=== PATIENT | female | born 1995 | race Caucasian/White ===

== ENCOUNTER 2017-10-21 17:20 | Inpatient (IN) | payer OTHER ==
[~2017-10-21] VITALS: Ht 165.1 cm; Wt 70.3 kg
[2017-10-21 17:29] VITALS: BP 148/86
[2017-10-21] MEDS ORDERED: DICYCLOMINE 20 MG/2 ML VIAL IM ONE (19:55)
[2017-10-21 21:11] LABS: BASOPHILS # (AUTO) 0.3 K/uL (0.00-0.22); BASOPHILS % (AUTO) 2.6 % (0.0-2.0); EOSINOPHILS # (AUTO) 0.1 K/uL (0-0.4); EOSINOPHILS % (AUTO) 0.6 % (0.0-4.0); HEMATOCRIT 38.9 % (36-48); HEMOGLOBIN 12.7 g/dL (12.0-16.0); LYMPHOCYTES # (AUTO) 2.4 K/uL (2.5-16.5); LYMPHOCYTES % (AUTO) 21.5 % (20.5-51.1); MEAN CORPUSCULAR HEMOGLOBIN 28 pg (27-31); MEAN CORPUSCULAR HGB CONC 33 g/dL (33-37); MEAN CORPUSCULAR VOLUME 86 fL (80-94); MONOCYTES # (AUTO) 0.4 K/uL (0.8-1.0); MONOCYTES % (AUTO) 3.7 % (1.7-9.3); NEUTROPHILS # (AUTO) 8.1 K/uL (1.8-7.7); NEUTROPHILS % (AUTO) 71.6 % (42.2-75.2); PLATELET COUNT (AUTO) 211 K/uL (140-450); RED BLOOD CELL COUNT(AUTO) 4.51 MIL/uL (4.20-5.40); RED CELL DISTRIBUTION WIDTH 12.4 % (11.6-13.7)
[2017-10-21 21:18] LABS: ANION GAP 9.3 (8-16); CARBON DIOXIDE 28.5 mmol/L (21-32); CREATININE 0.7 mg/dL (0.6-1.3); POTASSIUM 3.8 mmol/L (3.5-5.1)
[2017-10-21 21:24] LABS: TOTAL BILIRUBIN 0.2 mg/dL (0.0-1.0)
[2017-10-21 21:29] LABS: WHITE BLOOD COUNT (AUTO) 11.3 K/uL (4.8-10.8)
[2017-10-21] MEDS ORDERED: HYDROcodone/APAP 5/325 MG 1 TAB TAB PO ONE (22:25)
[2017-10-22] MEDS ORDERED: NACL 0.9% 1,000 ML IV ONE (00:35)
[2017-10-22] MEDS ORDERED: NACL 0.9% 1,000 ML IV SCH (02:54)
[2017-10-22] MEDS ORDERED: ACETAMINOPHEN 325 MG TAB PO PRN (02:55)
[2017-10-22] MEDS ORDERED: ONDANSETRON 4 MG/2 ML VIAL IVP PRN (02:55)
[2017-10-22] MEDS ORDERED: HYDROcodone/APAP 7.5/325 MG 1 TAB PO PRN (02:55)
[2017-10-22 03:51] LABS: CHOL/HDL RATIO 4.1 (1-4.5); FREE T4 (FREE THYROXINE) 0.94 ng/dL (0.76-1.46); PHOSPHORUS 3.9 mg/dL (2.5-4.9); THYROID STIMULATING HORMONE 2.65 uIU/mL (0.34-3.74)
[2017-10-22 04:00] VITALS: BP 116/80
[2017-10-22 07:38] LABS: PROTHROMBIN TIME 10.9 secs (10.8-13.4)
[2017-10-22 08:00] VITALS: BP 112/65
[2017-10-22 08:02] LABS: BARBITURATE, URINE NEG. ng/ml (NEG <=200); BENZODIAZEPINE, URINE NEG. ng/mL (NEG <=200); CANNABINOID, URINE NEG. ng/mL (NEG <=50); COCAINE, URINE NEG. ng/mL (NEG <=300); OPIATE, URINE NEG. ng/mL (NEG <=2000); PHENCYCLIDINE SCREEN,URINE NEG. ng/mL (NEG <=25)
[2017-10-22 08:14] LABS: APPEARANCE,URINE CLEAR (CLEAR); BILIRUBIN,URINE NEGATIVE (NEGATIVE); BLOOD, URINE NEGATIVE (NEGATIVE); COLOR,URINE YELLOW (YELLOW); LEUKOCYTE ESTERASE ,URINE NEGATIVE (NEGATIVE); NITRITE, URINE NEGATIVE (NEGATIVE); UGLUCOSE NEGATIVE (NEGATIVE)
[2017-10-22] MEDS ORDERED: DOCUSATE SODIUM 100 MG GELCAP PO SCH (09:00)
[2017-10-23] MEDS ORDERED: PSYLLIUM 12.2 GM/PKT PO SCH (09:00)
== END 2017-10-22 11:44 | disposition home or self-care (01) | DRG 532 ==
LOC: MED 17:20 → MTU 10-22 02:57
PROVIDERS: ADMIT Family Medicine; ATTEND Family Medicine
DX: N83.00 Follicular cyst of ovary, unspecified side (principal); R18.8 Other ascites; E78.5 Hyperlipidemia, unspecified; K59.00 Constipation, unspecified; E66.3 Overweight; Z68.25 Body mass index [BMI] 25.0-25.9, adult; S30.0XXA Contusion of lower back and pelvis, initial encounter; X58.XXXA Exposure to other specified factors, initial encounter; Y93.89 Activity, other specified; Y92.89 Other specified places as the place of occurrence of the external cause; Y99.8 Other external cause status
CPT/HCPCS: 36415; 71045; 76830; 80053; 80305; 81003; 81025; 82150; 83036; 83690; 83735; 83880; 84100; 84439; 84443; 84484; 84703; 85025; 85610; 85730; 87081; 96360; 96372; 99285; J0500; J7030; Q0092

== ENCOUNTER 2017-11-10 12:45 | Emergency (ER) | payer OTHER ==
[~2017-11-10] VITALS: Ht 167.6 cm; Wt 70.3 kg
[2017-11-10 13:08] VITALS: BP 141/87
--- NOTE | 2017-11-10 14:25 | NUR ---
c/o right side hip pain x 3wks---ambulatory with steady gait, denies injury /trauma ---seen in our er 10/22/2017, admitted and discharged the next day. DENIES N/V/D; SKIN IS PINK/WARM/DRY; AAOX4 WITH EVEN AND STEADY GAIT; LUNGS CLEAR BL; HR EVEN AND REGULAR; PT DENIES ANY FEVER, CP, SOB, OR COUGH AT THIS TIME; PATIENT STATES PAIN OF 6/10 AT THIS TIME; VSS; ER MD MADE AWARE OF PT STATUS.
[2017-11-10 16:00] VITALS: BP 130/75
--- NOTE | 2017-11-10 16:00 | NUR ---
Patient discharged with v/s stable. Written and verbal after care instructions given and explained. Patient alert, oriented and verbalized understanding of instructions. Ambulatory with steady gait. All questions addressed prior to discharge. ID band removed. Patient advised to follow up with PMD. Rx of tramadol and ketorolac given. Patient educated on indication of medication including possible reaction and side effects. Opportunity to ask questions provided and answered.
== END 2017-11-10 16:00 | disposition home or self-care (01) ==
LOC: MED 12:45
DX: N83.201 Unspecified ovarian cyst, right side (principal)
CPT/HCPCS: 81002; 81025; 99283

== ENCOUNTER 2019-04-16 04:19 | Emergency (ER) | payer SELFPAY ==
[~2019-04-16] VITALS: Ht 165.1 cm; Wt 65.8 kg
[2019-04-16 04:35] VITALS: BP 118/79
--- NOTE | 2019-04-16 04:44 | NUR ---
PT TAKEN TO BED 12
--- NOTE | 2019-04-16 04:45 | NUR ---
PT CAME TO ER C/O GENERAL BODY ACHES. PER PT SHE HASN'T BEEN FEELING GOOD SINCE LAST NIGHT AROUND 8PM. PT HAS FEVER 100.0 AND C/O OF SORE THROAT. PT PAIN LEVEL 8/10, BILATERAL LEGS ARE ACHING. PT TOOK TYLENOL AT 8PM AND MUCINEX AT 11PM WITHOUT ANY RELIEF. NKA. NO MED HX. SAFETY MEASURES IN PLACE. WAITING FOR ERMD TO EVALUATE PT.
[2019-04-16] MEDS ORDERED: KETOROLAC 30 MG/ML VIAL IVP ONE (05:00)
[2019-04-16] MEDS ORDERED: NACL 0.9% 1,000 ML IV ONE (05:00)
--- NOTE | 2019-04-16 05:41 | NUR ---
ERMD AT BEDSIDE
--- NOTE | 2019-04-16 05:48 | NUR ---
PT TEMPERATURE 100.3 ORALLY ERMD NOTIFIED.
[2019-04-16] MEDS ORDERED: ACETAMINOPHEN EXTRA STRENGTH 500 MG TAB PO ONE (05:50)
--- NOTE | 2019-04-16 06:23 | NUR ---
PT AMBULATED TO RESTROOM
[2019-04-16 06:43] VITALS: BP 118/79
--- NOTE | 2019-04-16 06:43 | NUR ---
Patient discharged with v/s stable. Written and verbal after care instructions given and explained. Patient alert, oriented and verbalized understanding of instructions. Ambulatory with steady gait. All questions addressed prior to discharge. ID band removed. Patient advised to follow up with PMD. Rx of TAMIFLU, MOTRIN, PREDNISONE WAS given. Patient educated on indication of medication including possible reaction and side effects. Opportunity to ask questions provided and answered.
== END 2019-04-16 06:43 | disposition home or self-care (01) ==
LOC: MED 04:19
DX: J11.1 Influenza due to unidentified influenza virus with other respiratory manifestations (principal); M79.10 Myalgia, unspecified site; J45.909 Unspecified asthma, uncomplicated
CPT/HCPCS: 81002; 81025; 96374; 99283; J1885; J7030

== ENCOUNTER 2021-09-01 06:46 | Emergency (ER) | payer SELFPAY ==
[~2021-09-01] VITALS: Ht 165.1 cm; Wt 75.9 kg
[2021-09-01 06:52] VITALS: BP 136/94
--- NOTE | 2021-09-01 06:59 | NUR ---
PT IN LOBBY.
[2021-09-01 11:55] LABS: BASOPHILS % (AUTO) 0.2 % (0.0-2.0); HEMATOCRIT 39.4 % (36-48); HEMOGLOBIN 13.1 g/dL (12.0-16.0); LYMPHOCYTES # (AUTO) 1.4 K/uL (2.5-16.5); LYMPHOCYTES % (AUTO) 12.6 % (20.5-51.1); MEAN CORPUSCULAR HEMOGLOBIN 30 pg (27-31); MEAN CORPUSCULAR HGB CONC 33 g/dL (33-37); MEAN CORPUSCULAR VOLUME 89.7 fL (80-94); MONOCYTES # (AUTO) 0.2 K/uL (0.8-1.0); MONOCYTES % (AUTO) 2.1 % (1.7-9.3); NEUTROPHILS # (AUTO) 9.5 K/uL (1.8-7.7); NEUTROPHILS % (AUTO) 85.1 % (42.2-75.2); PLATELET COUNT (AUTO) 226 K/uL (140-450); RED BLOOD CELL COUNT(AUTO) 4.39 MIL/uL (4.20-5.40); RED CELL DISTRIBUTION WIDTH 12.8 % (11.6-13.7); WHITE BLOOD COUNT (AUTO) 11.1 K/uL (4.8-10.8)
[2021-09-01 12:51] LABS: ALBUMIN 3.6 g/dL (3.4-5.0); ANION GAP 15.7 (8-16); CARBON DIOXIDE 26.9 mmol/L (21-32); CREATININE 0.7 mg/dL (0.6-1.3); POTASSIUM 3.6 mmol/L (3.5-5.1); TOTAL BILIRUBIN 0.4 mg/dL (0.0-1.0)
[2021-09-01] MEDS ORDERED: IBUP-2213 PO (13:27)
[2021-09-01] MEDS ORDERED: ATA10 PO (13:27)
--- NOTE | 2021-09-01 13:39 | NUR ---
DISCHARGED BY DR. DANNA SUAREZ, DO @ [id number] Patient discharged with v/s stable. Written and verbal after care instructions given and explained. Patient alert, oriented and verbalized understanding of instructions. Ambulatory with steady gait. All questions addressed prior to discharge. ID band removed. Patient advised to follow up with PMD. Rx of Hydroxyzine Hydrochloride, Ibuprofen given. Patient educated on indication of medication including possible reaction and side effects. Opportunity to ask questions provided and answered.
== END 2021-09-01 13:39 | disposition home or self-care (01) ==
LOC: MED 06:46
DX: R07.89 Other chest pain (principal); F41.9 Anxiety disorder, unspecified; Z79.899 Other long term (current) drug therapy
CPT/HCPCS: 36415; 71045; 80053; 83880; 84484; 85025; 85379; 93005; 99285

== ENCOUNTER 2021-09-04 17:07 | Emergency (ER) | payer SELFPAY ==
[~2021-09-04] VITALS: Ht 165.1 cm; Wt 74.4 kg
[~2021-09-04 17:07] MED LIST: ATA10 PO; IBUP-2213 PO
[2021-09-04 18:16] VITALS: BP 103/56
--- NOTE | 2021-09-04 19:17 | NUR ---
COVID WHIT SWAB DONE.
[2021-09-04] MEDS ORDERED: NAPR-54 PO (21:01)
[2021-09-04] MEDS ORDERED: PHEN177S23 PO (21:01)
[2021-09-04] MEDS ORDERED: ONDA-188 SL (21:01)
--- NOTE | 2021-09-04 21:14 | NUR ---
pt d/c by ANSLEY March with rx of sindy ramirez, phenol.
== END 2021-09-04 21:14 | disposition home or self-care (01) ==
LOC: MED 17:07
DX: J10.1 Influenza due to other identified influenza virus with other respiratory manifestations (principal); Z20.822 Contact with and (suspected) exposure to COVID-19
CPT/HCPCS: 99283

== ENCOUNTER 2021-11-03 03:18 | Emergency (ER) | payer BC, OTHER ==
[~2021-11-03] VITALS: Ht 165.1 cm; Wt 76.2 kg
[~2021-11-03 03:18] MED LIST changes: +NAPR-54 PO; +ONDA-188 SL; +PHEN177S23 PO
[2021-11-03 03:23] VITALS: BP 130/78
--- NOTE | 2021-11-03 03:34 | NUR ---
PT AMBULATED TO BED 11.
--- NOTE | 2021-11-03 03:35 | NUR ---
SAW PMD YESTERDAY " I WAS TOLD I HAD AN INFECTION BUT HE DIDN'T TELL ME WHAT KIND. HE GAVE ME ANTIBIOTICS BUT I DIDN'T GET THEM FILLED. HE GAVE ME AN ANTIBIOTIC SHOT TOO" PT C/O CHILLS NOW
--- NOTE | 2021-11-03 03:36 | NUR ---
UA SENT TO LAB
[2021-11-03 03:38] LABS: APPEARANCE,URINE SL CLOUDY (CLEAR); BILIRUBIN,URINE NEGATIVE (NEGATIVE); BLOOD, URINE 2+ (NEGATIVE); COLOR,URINE YELLOW (YELLOW); LEUKOCYTE ESTERASE ,URINE 2+ (NEGATIVE); NITRITE, URINE NEGATIVE (NEGATIVE); UGLUCOSE NEGATIVE (NEGATIVE)
[2021-11-03] MEDS ORDERED: NITROFURANTOIN 100 MG CAP PO SCH (03:45)
[2021-11-03] MEDS ORDERED: PHENAZOPYRIDINE 100 MG TAB PO ONE (03:45)
[2021-11-03] MEDS ORDERED: PYR100 PO (03:46)
--- NOTE | 2021-11-03 04:17 | NUR ---
Patient discharged with v/s stable. Written and verbal after care instructions given and explained. Patient alert, oriented and verbalized understanding of instructions. Ambulatory with steady gait. All questions addressed prior to discharge. ID band removed. Patient advised to follow up with PMD. Rx of PYRIDIUM given. Patient educated on indication of medication including possible reaction and side effects. Opportunity to ask questions provided and answered.
[2021-11-03 04:45] LABS: RBC,URINE 0-5 /HPF (0-5); WBC,URINE 20-60 /HPF (0-5)
== END 2021-11-03 04:17 | disposition home or self-care (01) ==
LOC: MED 03:18
DX: N39.0 Urinary tract infection, site not specified (principal); R03.0 Elevated blood-pressure reading, without diagnosis of hypertension; Z79.899 Other long term (current) drug therapy
CPT/HCPCS: 81001; 87086; 99283

== ENCOUNTER 2021-11-15 09:25 | Emergency (ER) | payer BC ==
[~2021-11-15] VITALS: Ht 165.1 cm; Wt 75.7 kg
[~2021-11-15 09:25] MED LIST changes: +PYR100 PO
[2021-11-15 09:33] VITALS: BP 152/92
--- NOTE | 2021-11-15 10:07 | NUR ---
26 y/o female C/O UTI symptoms, states she went to urgent care and was given an antibiotic of Macrobid but symptoms are still ongoing. Patient finished antibiotic on Sunday. Patient reports back pain, dysuria and urgency. Denies fever or chills. Medical History: DENIES Allergies: KRISTIN
--- NOTE | 2021-11-15 10:30 | NUR ---
DR PRINCE AT BEDSIDE EXAMINING PT
[2021-11-15] MEDS ORDERED: FLUCONAZOLE 100 MG TAB PO ONE (10:40)
[2021-11-15] MEDS ORDERED: CRUSHER, PILL MC ONE (10:49)
[2021-11-15] MEDS ORDERED: FLUC150T PO (11:05)
[2021-11-15 11:06] LABS: APPEARANCE,URINE CLEAR (CLEAR); BILIRUBIN,URINE NEGATIVE (NEGATIVE); BLOOD, URINE 1+ (NEGATIVE); COLOR,URINE YELLOW (YELLOW); LEUKOCYTE ESTERASE ,URINE TRACE (NEGATIVE); NITRITE, URINE NEGATIVE (NEGATIVE); UGLUCOSE NEGATIVE (NEGATIVE)
[2021-11-15 11:16] VITALS: BP 152/92
--- NOTE | 2021-11-15 11:17 | NUR ---
Patient discharged with v/s stable. Written and verbal after care instructions given. Patient alert, oriented and verbalized understanding of instructions. Ambulatory with steady gait. All questions addressed prior to discharge. ID band removed. Patient advised to follow up with PMD. Rx of diflucan given. Opportunity to ask questions provided and answered.
[2021-11-15 11:19] LABS: RBC,URINE 0-5 /HPF (0-5); WBC,URINE 0-5 /HPF (0-5)
[2021-11-15 11:20] LABS: CALCIUM OXALATE CRYSTALS,UR None Seen /HPF (None Seen); COARSE GRANULAR CASTS,URINE None Seen /LPF (None Seen); FINE GRANULAR CASTS,URINE None Seen /LPF (None Seen); HYALINE CASTS, URINE None Seen /LPF (None Seen); OTHER CASTS, URINE None Seen /LPF (None Seen); OTHER CRYSTALS,URINE None Seen /HPF (None Seen); RED BLOOD CELL CASTS,URINE None Seen /LPF (None Seen); TRICHOMONAS,URINE None Seen /HPF (None Seen); TRIPLE PHOSPHATE CRYSTAL,UR None Seen /HPF (None Seen); URIC ACID CRYSTALS,URINE None Seen /HPF (None Seen); URINE AMORPHOUS URATE None Seen /HPF (None Seen); WAXY CASTS,URINE None Seen /LPF (None Seen); YEAST,URINE None Seen /HPF (None Seen)
== END 2021-11-15 11:17 | disposition home or self-care (01) ==
LOC: MED 09:25
DX: B37.41 Candidal cystitis and urethritis (principal); Z79.899 Other long term (current) drug therapy
CPT/HCPCS: 36415; 81001; 81025; 87086; 99283

== ENCOUNTER 2022-03-20 11:55 | Emergency (ER) | payer SELFPAY ==
[~2022-03-20] VITALS: Ht 165.1 cm; Wt 73.5 kg
[~2022-03-20 11:55] MED LIST changes: +FLUC150T PO
[2022-03-20 12:01] VITALS: BP 129/93
[2022-03-20] MEDS ORDERED: NACL 0.9% 1,000 ML IV SCH (12:05)
--- NOTE | 2022-03-20 12:07 | NUR ---
PT AMBULATED TO ER BED 7
[2022-03-20] MEDS ORDERED: KETOROLAC 30 MG/ML VIAL IVP ONE (12:10)
[2022-03-20] MEDS ORDERED: ONDANSETRON 4 MG/2 ML VIAL IVP ONE ×2 (12:10→12:50)
--- NOTE | 2022-03-20 12:44 | NUR ---
PA BARCENAS AT BEDSIDE EVALUATING PT
[2022-03-20 12:50] LABS: BASOPHILS % (AUTO) 0.5 % (0.0-2.0); EOSINOPHILS % (AUTO) 0.1 % (0.0-4.0); HEMATOCRIT 40.1 % (36-48); HEMOGLOBIN 13.5 g/dL (12.0-16.0); LYMPHOCYTES # (AUTO) 1.7 K/uL (2.5-16.5); LYMPHOCYTES % (AUTO) 22.8 % (20.5-51.1); MEAN CORPUSCULAR HEMOGLOBIN 30 pg (27-31); MEAN CORPUSCULAR HGB CONC 34 g/dL (33-37); MONOCYTES # (AUTO) 0.2 K/uL (0.8-1.0); MONOCYTES % (AUTO) 3.3 % (1.7-9.3); NEUTROPHILS # (AUTO) 5.4 K/uL (1.8-7.7); NEUTROPHILS % (AUTO) 73.3 % (42.2-75.2); PLATELET COUNT (AUTO) 216 K/uL (140-450); RED BLOOD CELL COUNT(AUTO) 4.56 MIL/uL (4.20-5.40); RED CELL DISTRIBUTION WIDTH 13.2 % (11.6-13.7); WHITE BLOOD COUNT (AUTO) 7.4 K/uL (4.8-10.8)
[2022-03-20] MEDS ORDERED: LOPERAMIDE 2 MG CAP PO ONE (12:50)
[2022-03-20] MEDS ORDERED: ONDANSETRON 4 MG/2 ML VIAL ONE (13:03)
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
[2022-03-20 13:26] LABS: ALBUMIN 3.8 g/dL (3.4-5.0); ANION GAP 16.4 (8-16); CARBON DIOXIDE 23.2 mmol/L (21-32); CREATININE 0.7 mg/dL (0.6-1.3); POTASSIUM 3.6 mmol/L (3.5-5.1); TOTAL BILIRUBIN 0.3 mg/dL (0.0-1.0)
[2022-03-20] MEDS ORDERED: CEPH-588 PO (13:49)
[2022-03-20] MEDS ORDERED: ONDA-188 PO (13:49)
[2022-03-20] MEDS ORDERED: IMO2 PO (13:49)
--- NOTE | 2022-03-20 14:10 | NUR ---
PT SWABBED FOR STREP X2. WALKED TO LAB
--- NOTE | 2022-03-20 14:11 | NUR ---
IV removed, catheter intact and site benign. Applied folded 4x4 gauze and tape to stop bleeding.
[2022-03-20 14:20] VITALS: BP 118/75
--- NOTE | 2022-03-20 14:29 | NUR ---
Patient discharged with v/s stable. Written and verbal after care instructions FOR DIARRHEA given and explained. Patient verbalized understanding. Prescriptions for cephalexin, loperamide, and ondasetron were given. Ambulatory with steady gait. All questions addressed prior to discharge. Advised to follow up with PMD.
== END 2022-03-20 14:29 | disposition home or self-care (01) ==
LOC: MED 11:55
DX: N39.0 Urinary tract infection, site not specified (principal); J02.9 Acute pharyngitis, unspecified
CPT/HCPCS: 36415; 80053; 81002; 81025; 83690; 85025; 87081; 87086; 96360; 96361; 99283; J1885; J2405; J7030

== ENCOUNTER 2024-02-09 16:38 | Emergency (ER) | payer OTHER ==
[~2024-02-09] VITALS: Ht 165.1 cm; Wt 81.6 kg
[~2024-02-09 16:38] MED LIST changes: +CEPH-588 PO; +IMO2 PO; +NAPR-337 PO; -NAPR-54 PO; +ONDA-188 PO
[2024-02-09 17:17] VITALS: BP 151/108; PULSE 104; RESP 18; TEMP 98.3; O2SAT 98
[2024-02-09 18:39] LABS: APPEARANCE,URINE CLEAR (CLEAR); BILIRUBIN,URINE NEGATIVE (NEGATIVE); BLOOD, URINE TRACE-I (NEGATIVE); COLOR,URINE YELLOW (YELLOW); LEUKOCYTE ESTERASE ,URINE NEGATIVE (NEGATIVE); NITRITE, URINE NEGATIVE (NEGATIVE); PROTEIN,URINE NEGATIVE (NEGATIVE); UGLUCOSE NEGATIVE (NEGATIVE); UROBILINOGEN,URINE 0.2 EU/dL (0.2 - 1)
[2024-02-09 18:49] LABS: BASOPHILS % (AUTO) 0.1 % (0.0-2.0); HEMATOCRIT 37.7 % (36-48); HEMOGLOBIN 12.2 g/dL (12.0-16.0); LYMPHOCYTES # (AUTO) 3.3 K/uL (2.5-16.5); LYMPHOCYTES % (AUTO) 18.1 % (20.5-51.1); MEAN CORPUSCULAR HEMOGLOBIN 27 pg (27-31); MEAN CORPUSCULAR HGB CONC 32 g/dL (33-37); MEAN CORPUSCULAR VOLUME 84.7 fL (80-94); MONOCYTES # (AUTO) 0.9 K/uL (0.8-1.0); MONOCYTES % (AUTO) 5.2 % (1.7-9.3); NEUTROPHILS # (AUTO) 13.8 K/uL (1.8-7.7); NEUTROPHILS % (AUTO) 76.6 % (42.2-75.2); PLATELET COUNT (AUTO) 284 K/uL (140-450); RED BLOOD CELL COUNT(AUTO) 4.45 MIL/uL (4.20-5.40); RED CELL DISTRIBUTION WIDTH 14.2 % (11.6-13.7)
[2024-02-09 19:05] VITALS: TEMP 98.3
[2024-02-09 19:34] LABS: ALBUMIN 3.2 g/dL (3.4-5.0); BILIRUBIN,DIRECT 0.1 mg/dL (0.0-0.3); TOTAL BILIRUBIN 0.2 mg/dL (0.0-1.0); TOTAL PROTEIN, SERUM 7.6 g/dL (6.4-8.2)
[2024-02-09 20:06] LABS: ANION GAP 14.4 (8-16); CALCIUM 8.8 mg/dL (8.5-10.1); CARBON DIOXIDE 24.4 mmol/L (21-32); CREATININE 0.7 mg/dL (0.6-1.3); POTASSIUM 3.8 mmol/L (3.5-5.1)
[2024-02-09] MEDS: NACL 0.9% 1,000 ML IV ONE (20:12)
[2024-02-09] MEDS: MORPHINE SULFATE 4 MG/ML SYR IVP ONE (20:15)
[2024-02-09] MEDS: ACETAMINOPHEN EXTRA STRENGTH 500 MG TAB PO ONE (21:10)
[2024-02-09 21:40] VITALS: O2SAT 99
[2024-02-09 23:09] VITALS: BP 141/83; PULSE 86; RESP 20; O2SAT 96
[2024-02-09] MEDS ORDERED: LACT-191 PO (23:27)
== END 2024-02-09 23:30 | disposition home or self-care (01) ==
LOC: MED 16:38
DX: K59.00 Constipation, unspecified (principal); R10.9 Unspecified abdominal pain; I10 Essential (primary) hypertension; Z79.899 Other long term (current) drug therapy
CPT/HCPCS: 36415; 74176; 76856; 80048; 80076; 81003; 81025; 83690; 85025; 87210; 96361; 96374; 99285; J2270; Q0092; J7030